=== PATIENT | female | born 1955 | race Caucasian/White ===

== ENCOUNTER 2018-09-02 10:39 | Inpatient (IN) | payer OTHER ==
[~2018-09-02] VITALS: Ht 167.6 cm; Wt 113.4 kg
[~2018-09-02 10:39] MED LIST: AMLODIPINE-BEN1 EAC1 PO; ATORVASTATIN CA20 MG PO; CITALOPRAM HBR20 MG PO; OXYC1TAB9 PO; TENORMIN100 M1 PO; XARELTO 10MG PO
[2018-09-09] MEDS ORDERED: BACTRIM DS TAB1 EACH PO (06:42)
[2018-09-09] MEDS ORDERED: INTEGRA PLUS C1 EACH PO (06:42)
[2018-09-09] MEDS ORDERED: XARELTO10 MG PO (06:42)
[2018-09-09] MEDS ORDERED: OXYC1TAB9 PO (06:42)
== END 2018-09-13 16:31 | disposition home or self-care (01) | DRG 470 ==
LOC: O/R 09-06 05:55 → SURH 09-06 05:55
PROVIDERS: ADMIT Orthopaedic Surgery Sports Medicine
PROC: 3E0F7GC Introduction of Other Therapeutic Substance into Respiratory Tract, Via Natural or Artificial Opening (ICD-10-PCS; 2018-09-06)
PROC: 0SRD0J9 Replacement of Left Knee Joint with Synthetic Substitute, Cemented, Open Approach (ICD-10-PCS; principal; 2018-09-06 12:30)
PROC: BW24ZZZ Computerized Tomography (CT Scan) of Chest and Abdomen (ICD-10-PCS; 2018-09-09)
DX: M17.12 Unilateral primary osteoarthritis, left knee (principal); J95.89 Other postprocedural complications and disorders of respiratory system, not elsewhere classified; J98.11 Atelectasis; D62 Acute posthemorrhagic anemia; R09.02 Hypoxemia; M65.862 Other synovitis and tenosynovitis, left lower leg; E78.00 Pure hypercholesterolemia, unspecified; I10 Essential (primary) hypertension; F41.8 Other specified anxiety disorders; Z88.0 Allergy status to penicillin